=== PATIENT | female | born 1975 | race Caucasian/White ===

== ENCOUNTER → 2017-09-23 | Outpatient (CLI) | payer BC ==
--- NOTE | 2017-09-23 08:05 | DIAGNOSTIC IMAGING REPORT ---
THYROID ULTRASOUND HISTORY: THYROMEGALY, FAM HX THYROID CA COMPARISON: None. FINDINGS: Right lobe: 5.0 x 2.0 x 1.4 cm. There is a 1.1 x 0.9 x 0.7 cm solid isoechoic nodule. This may contain a few punctate microcalcifications. Left lobe: 4.2 x 1.6 x 1.3 cm. No nodules. Isthmus: 4 mm in thickness. No nodules. IMPRESSION: A 1.1 x 0.9 x 0.7 cm solid nodule within the right thyroid lobe. Ultrasound-guided fine needle aspiration is recommended for further evaluation. Electronically signed by: Cesar Alonzo M.D. 09/23/2017 8:04 AM Dictated Date/Time: 09/23/2017 8:02 AM
== END | disposition home or self-care (01) ==
LOC: C.ULTR 07:33
PROVIDERS: ATTEND Nurse Practitioner Family
DX: E04.9 Nontoxic goiter, unspecified (principal); Z80.8 Family history of malignant neoplasm of other organs or systems

== ENCOUNTER → 2017-09-27 | Outpatient (CLI) | payer BC ==
--- NOTE | 2017-09-27 11:40 | Discharge Instructions ---
Discharge Instructions Procedure Procedure Date: Sep 27, 2017. Reason for visit: R Thyroid Nodule 1CM. Discharge Discharge Date: Sep 27, 2017. Discharge Diagnosis: Right lobe thyroid nodule Instructions Activity Recommendations: No limitations Return to School/Work: no limitations Recommended Home Diet: Resume Previous Diet Provider Instructions: ACTIVITY RECOMMENDATIONS: * Rest today. * Resume regular activity in one day. MEDICATIONS: * May take Tylenol or Ibuprofen as needed for pain. DIET: * Resume previous diet. SPECIAL CARE INSTRUCTIONS: Call your doctor if: * Temperature above 101 degrees F. * Pain not relieved by pain medicine ordered. * Increased drainage or redness from incision. * Notify your doctor with any questions or concerns. Call your doctor or go to the nearest Emergency Department if you experience: * Increased chest pain or shortness of breath. FOLLOW UP VISIT: Follow-up with Referring Physician as scheduled. Tico Aguilar Recommendations: Call your doctor if: * Temperature above 101 degrees * Pain not relieved by pain medicine ordered * There is increased drainage or redness from any incision * You have any unanswered questions or concerns. Your Doctors Instructions noted above were prepared by provider Brian Santos. Patient Signature Section: Patient Instructions Signature Page Alicia Wolf Patient (or Guardian) Signature/Date: I have read and understand the instructions given to me by my caregivers. Caregiver/RN/Doctor Signature/Date: The above-named patient and/or guardian has received patient instructions on this date. + Original Patient Signature Page (only) stays with chart. Please make copy for patient.
--- NOTE | 2017-09-27 12:17 | DIAGNOSTIC IMAGING REPORT ---
ULTRASOUND-GUIDED FINE-NEEDLE ASPIRATION THYROID CLINICAL HISTORY: Right lobe thyroid nodule. COMPARISON STUDY: Thyroid ultrasound dated 09/23/2017. PROCEDURE: The risks, benefits, and alternatives to the procedure were discussed with the patient. Written informed consent was obtained. The patient was placed supine in ultrasound, and the 1.1 cm nearly isoechoic nodule in the right lobe of the thyroid was localized by ultrasound and selected for fine needle aspiration. The right neck was prepped and draped in the usual sterile fashion. The nodule was aspirated under ultrasound guidance with 1 pass utilizing 25-gauge needles. Specimens were reviewed by the pathologist in real-time and deemed adequate for diagnosis. The patient tolerated the procedure well and left the department in satisfactory condition. IMPRESSION: Completed fine-needle aspiration of a right thyroid nodule as above. Electronically signed by: Brian Santos M.D. 09/27/2017 12:16 PM Dictated Date/Time: 09/27/2017 12:15 PM
== END | disposition home or self-care (01) ==
LOC: C.ULTR 10:58
PROVIDERS: ATTEND Nurse Practitioner Family
DX: E04.1 Nontoxic single thyroid nodule (principal)